=== PATIENT | female | born 1995 | race African-American/Black ===

== ENCOUNTER 2017-03-05 03:01 | Inpatient (IN) | payer OTHER, SELFPAY ==
[2017-03-05] MEDS ORDERED: Ketorolac Tromethamine 30 MG/ML VIAL ONE (03:35)
[2017-03-05 04:25] LABS: Band 10 % (5-11); Hematocrit 33.2 % (36.0-47.0); Mean Platelet Volume 9.7 fL (7.4-10.4); Neutrophil 81 % (42-75); Red Blood Cell (RBC) Count 3.93 mill/uL (4.20-5.40)
[2017-03-05 04:35] LABS: Anion Gap 10 mmol/L (10-20); BUN (Urea Nitrogen) 19 mg/dL (7.0-18.7); Calc. Creatinine Clearance 0 mL/min (70-130); Carbon Dioxide 25 mmol/L (22-29); Chloride 100 mmol/L (98-107); Estimated GFR-MDRD 45
[2017-03-05] MEDS ORDERED: Dexamethasone 10 MG/ML VIAL ONE ×2 (05:41→11:31)
[2017-03-05 07:20] LABS: Lactic Acid - Sepsis 1.7 mmol/L (0.5-2.2)
[2017-03-05 07:48] LABS: Bilirubin Negative (Negative); Blood, Urine Negative (Negative); Glucose, Urine (Dipstick) Negative (Negative); Ketone, Urine Negative (Negative); Nitrite Negative (Negative); Protein, Urine (Dipstick) Negative (Neg-Trace)
[2017-03-05 08:00] LABS: Bacteria/HPF 2+ HPF (None Seen); Hyaline Casts/LPF 0-3 HYALINE CAST LPF (0-3 Hyaline); RBC/HPF 0-3 HPF (0-3); Renal Epithelial 0-3 HPF (0-3); Transitional Epithelial 0-3 HPF (0-3)
--- NOTE | 2017-03-05 08:04 | RAD ---
PORTABLE CHEST ONE VIEW: 03/05/2017 4:05 a.m. HISTORY: Cough. COMPARISON: 04/27/2009 FINDINGS: The heart size is normal. No focal areas of consolidation, pneumothorax, or pleural effusions are s een. IMPRESSION: No acute process. POS: [facility]
--- NOTE | 2017-03-05 10:18 | CT ---
POSTCONTRAST SOFT TISSUE NECK CT: Date: 03/05/17 HISTORY: Fever. Neck mass. Body aches. Lymph node swelling. Patient is on antibiotics. COMPARISON: None. TECHNIQUE: Postcontrast soft tissue neck CT is performed in the axial plane. Reformatted images are submitted f or interpretation. FINDINGS: Visualized brain parenchyma is unremarkable. Mild mucosal thickening in the visualized paranasal sinuses. Adequate mastoid air cell aeration. Aerodigestive tract is patent. No mucosal abnormality. Limited evaluation of the oral cavity due to dental amalgam artifact. Midline fatty raphe of the tongue is preserved. Epiglottis has a normal jim iber. Pre-epiglottic fat is preserved. There is no prevertebral soft tissue swelling. There is symmetric attenuation of the parotid and submandibular glands. Symmetric attenuation of the sternocleidomastoid muscles. There are enlarged soft tissue neck lymph nodes. Enlarged left Level II lymph node measures 1.3 x 1. 1 cm. Enlarged posterior left neck lymph node at the C1 level measures 1.5 x 1.0 cm. There is a necr otic focus with peripheral enhancement in the posterior right neck at approximately the C3 level armani suring 1.5 x 1.7 cm. A small soft tissue abscess is favored. There is induration of the adjacent fat . Additional scattered enlarged and nonenlarged lymph nodes are noted. Grossly, the great vessels of the neck are patent. There is no significant stenosis of the central spinal canal or neural foramina. Vertebral body heig ht is maintained. No fracture. Upper mediastinum and lung apices are unremarkable. IMPRESSION: 1. Posterior right neck soft tissue abscess. 2. Soft tissue neck lymphadenopathy. 3. No obvious mass in the aerodigestive tract. POS: [facility]
[2017-03-05] MEDS ORDERED: Aztreonam 2 GM in Sodium Chloride 0.9% 100 ML IVPB SCH (12:15)
[2017-03-05] MEDS ORDERED: Acetaminophen 325 MG TAB PO PRN (12:51)
[2017-03-05 12:59] VITALS: BMI 32.8
[2017-03-05] MEDS ORDERED: Sodium Chloride 0.9% 1,000 ML IV SCH (13:00)
--- NOTE | 2017-03-05 14:17 | HP-2 ---
CODE STATUS: FULL. PRIMARY CARE PHYSICIAN: Claudia morfin. ATTENDING: Alanis Venegas M.D. RESIDENT: Kyaw Dhaliwal D.O. HISTORIAN: The patient. CHIEF COMPLAINT: Neck pain. HISTORY OF PRESENT ILLNESS: A 21-year-old female here with complaint of neck pain and a right poste rior neck mass. Apparently the mass has been present for approximately 1 week where it came up \\\\"o vernight\\\\" and although the mass has not been tender it has caused throbbing neck pain intermittent ly. The patient was seen approximately a week ago at [facility] for fever, chills, body joyce n. She was diagnosed with flu; however, there is apparently some concern of bacterial etiology as t he patient was put on Keflex at that time. Additionally, she was put on tramadol for the pain. As far as the fever is concerned they have been subjective only and has not had a documented fever. Th e patient did not take her temperature at home. Since discharge from the emergency room at [facility] ranjit Mix she has had intermittent pain with one presyncopal episode while in the shower. Around midn ight or 2 a.m. on the morning of 03/05/2017 she had a throbbing pain that was bad enough that she de cided to call EMS for evaluation in the ER. When at the ER the patient got a CT that showed a right posterior lymph node versus abscess and 2 left lymph nodes, the right measured approximately 2.5 cm and the left 1-1/2. In the ER, the patient was given Toradol 15 mg, aztreonam 2 grams, vancomycin 1 gram, Decadron 10 mg x2. At the time of my evaluation, the patient was not complaining of pain an d had no specific complaints. PAST MEDICAL HISTORY: None. PAST SURGICAL HISTORY: Tonsillectomy. ALLERGIES: PENICILLIN, anaphylactic in nature. MEDICATIONS: Keflex and tramadol. FAMILY HISTORY: Maternal fibroids. SOCIAL HISTORY: Tobacco none. ETOH none. Drugs: None. REVIEW OF SYSTEMS: GENERAL: The patient endorses fever, chills, and fatigue. Denies any night sweats, changes in appe tite, changes in weight. HEENT: Denies any vision changes or eye pain. ENT: No nasal congestion, rhinorrhea. RESPIRATORY: Denies any cough or congestion or shortness of breath. CARDIOVASCULAR: Denies any chest pain or palpitations. GI: Denies any nausea, vomiting. SKIN: Denies rashes or lesions. MUSCULOSKELETAL: Denies any pain, tenderness other than noted above. NEURO: Denies any weakness or numbness. Admits to 1 presyncopal episode. PSYCHIATRIC: Denies any anxiety or depression. PHYSICAL EXAMINATION: VITAL SIGNS: Blood pressure 120/70, pulse 97, respiratory rate 18, T-max 98.8, pulse ox 99% on room air, current weight is 81.6 kilograms. GENERAL: The patient is alert and oriented x3 in no apparent distress. HEENT: PERRLA, EOMI. Conjunctivae within normal limits. Nasal turbinates are edematous and red. Oropharynx is erythematous without exudate. NECK: Supple with a right posterior lymph node, nontender, mobile and regular, approximately 2.5 cm across. There are 2 left posterior lymph nodes approximately 0.5 cm across that are nontender, mob ile, rubbery in consistency and not irregular. CARDIOVASCULAR: Regular rate and rhythm. No murmur. RESPIRATORY: Normal effort. Clear to auscultation bilaterally without retractions. SKIN: Warm and dry. ABDOMEN: Soft, nontender. Bowel sounds are all 4 quadrants without mass or distention. EXTREMITIES: No clubbing, cyanosis or edema. MUSCULOSKELETAL: Structure within normal limits. Tone within normal limits. Muscle strength is 5/ 5. Full range of motion in all major joints. NEUROLOGICAL: No focal neurological deficits. Cranial nerves II-XII are grossly intact. PSYCHIATRIC: Appropriate. LABORATORY DATA: CBC: Hemoglobin 10.9, hematocrit 33.2, white count 20.0, platelets 127, MCV of 84 .4. 10% bands, 81% neutrophils. BMP; sodium 131, potassium 4.0, chloride 20, bicarbonate 25, BUN 19 , creatinine 1.73, glucose 117, calcium is 8.0. Rapid Strep test is negative. Flu A and B are nega tive. Piute POC test is negative. CK is 70. UA; specific gravity 1.012, protein negative blood, ne gative, leukocyte esterase small, nitrites negative, ketones negative, glucose negative, RBC 0-3, WB Cs 4-6, bacteria 2+, squamous cells 11-20. Chest x-ray is within normal limits. IMAGING: Neck CT; right neck posterior soft tissue abscess versus lymphadenopathy and left posterio r lymphadenopathy. ASSESSMENT AND PLAN: This is a 21-year-old female with posterior lymphadenopathy reactive versus ma lignant in nature. 1. Lymphadenopathy bilateral on CT imaging, may be an abscess on the right. ENT has been consulted , an infectious etiology has been ruled out via POC testing. Consider repeating mono or blood draw for an IgM, consider EBV, CMV, possibly Bartonella if there has been exposure pending ENT recommenda tions. 2. Neutrophilia. Increased neutrophils and bands suggest infectious possible bacterial etiology. We will continue the antibiotics. Culture have been drawn. Infectious workup as above. We will di scontinue the antibiotics once bacterial etiology has been ruled out. 3. Anemia. The patient is not symptomatic. Concerning the mild thrombocytopenia and neutrophilia, leukemia is in the differential. Follow ENT recommendations as far as possible biopsy of that lymp h node. 4. Thrombocytopenia as above. We will follow CBC in the morning. 5. Acute kidney injury. The patient is possibly volume down. We will continue the IVF and monitor the BMP in the morning. 6. Hyponatremia. We will get a urine osmolality and will follow BMP. We will work up further if t his does not resolve with intravenous fluid resuscitation.
[2017-03-05 14:51] LABS: Lactic Acid - Sepsis 1.5 mmol/L (0.5-2.2)
[2017-03-05] MEDS: Sodium Chloride 0.9% 1,000 ML IV SCH ×2 (14:52→23:11)
[2017-03-05 19:49] LABS: Osmolality, Urine 170 mOsm/kg (300-900)
[2017-03-05 19:58] LABS: Sodium, Urine Less than 20 mmol/L (Not Available)
[2017-03-06] MEDS: Sodium Chloride 0.9% 1,000 ML IV SCH ×2 (06:38→14:37)
--- NOTE | 2017-03-06 06:50 | PDOC.FM ---
- Subjective Subjective: Pt states that she has no complaints this morning and is generally feeling well. She says that her neck did hurt some last night, however this has resolved. She denies sore throat, difficulty swallowing, cough, peripheral numbness/weakness, easy bruising and all other symptoms in ROS not previously noted - Objective Vital Signs & Weight: Vital Signs (12 hours) Temp Pulse Resp BP BP Pulse Ox 03/06/17 05:28 97.6 F 74 16 90/60 100 03/06/17 00:07 97.5 F L 80 14 98/64 98 03/05/17 20:00 98.4 F 71 16 121/76 99 03/05/17 19:59 98.4 F 71 18 121/76 99 Weight Weight 83.915 kg Result Diagrams: 03/05/17 03:54 03/05/17 03:54 <Kyaw Dhaliwal - Last Filed: 03/06/17 08:40> - Objective Vital Signs & Weight: Vital Signs (12 hours) Temp Pulse Resp BP Pulse Ox 03/06/17 11:31 98.8 F 66 16 106/74 100 03/06/17 08:00 97.7 F 63 16 97 03/06/17 07:07 97.7 F 63 16 101/71 97 03/06/17 05:28 97.6 F 74 16 90/60 100 Weight Weight 83.915 kg Result Diagrams: 03/06/17 08:25 03/06/17 08:25 <Charlette Bal - Last Filed: 03/06/17 15:54> Phys Exam - Physical Examination Constitutional: NAD HEENT: PERRLA, moist MMs non exudative erythromatous pharynx Neck: full ROM large 2.5 cm lymph node on posterior R. 2 0.5cm lymp nodes posterior L. Non tender, unchanged. Respiratory: clear to auscultation bilateral Cardiovascular: RRR, no significant murmur Gastrointestinal: soft Slight edema in right arm. No palpable lymph nodes Neurological: non-focal As noted above. No other nodes noted to include axilla and supraclavicular Psychiatric: normal affect, A&O x 3 Skin: no rash, normal turgor <Kyaw Dhaliwal - Last Filed: 03/06/17 08:40> Dx/Plan (1) Posterior cervical lymphadenopathy Code(s): R59.0 - LOCALIZED ENLARGED LYMPH NODES Status: Acute (2) Anemia Code(s): D64.9 - ANEMIA, UNSPECIFIED Status: Acute Qualifiers: Anemia type: unspecified type Qualified Code(s): D64.9 - Anemia, unspecified (3) Neutrophilia Code(s): D72.9 - DISORDER OF WHITE BLOOD CELLS, UNSPECIFIED Status: Acute (4) Thrombocytopenia Code(s): D69.6 - THROMBOCYTOPENIA, UNSPECIFIED Status: Acute (5) MAGNO (acute kidney injury) Code(s): N17.9 - ACUTE KIDNEY FAILURE, UNSPECIFIED Status: Resolved (6) Hyponatremia Code(s): E87.1 - HYPO-OSMOLALITY AND HYPONATREMIA Status: Resolved - Plan Plan: 1. Posterior Lymphadenopathy -EBV positive. -ENT consult pending. 2. Anemia -possible incidental finding, however in the presence of elevated white count and throbocytopenia with the large lymphnodes, malignancy cannot be ruled out -iron studies and peripheral smear 3. thrombocytopenia -see anemia 4. MAGNO -resolved w/IVF -encourage PO fluids 5. Hyponatremia -resolved w/IVF <Kyaw Dhaliwal - Last Filed: 03/06/17 08:40> Attending Addendum - Attending Addendum I personally evaluated the patient and discussed the management with Dr. Dhaliwal. I agree with the History, Examination, Assessment and Plan documented above with any addition or exceptions noted below. The patient will be seen by ENT for possible biopsy. EBV results indicate prior infection. Will await ENT input. Stop IV fluids. <Charlette Bal - Last Filed: 03/06/17 15:54>
[2017-03-06 08:19] LABS: EBV Early Antigen (EA) IgG AB <9.0 U/mL (0.0-8.9); EBV VCA IgG >600.0 U/mL (0.0-17.9)
[2017-03-06 09:05] LABS: Anion Gap 11 mmol/L (10-20); BUN (Urea Nitrogen) 17 mg/dL (7.0-18.7); Calc. Creatinine Clearance 124 mL/min (70-130); Calcium 8.5 mg/dL (7.8-10.44); Carbon Dioxide 21 mmol/L (22-29); Chloride 111 mmol/L (98-107); Estimated GFR-MDRD 90
[2017-03-06 09:07] LABS: Iron 58 ug/dL (50-170)
[2017-03-06 09:35] LABS: Band 35 % (5-11); Burr Cells SLIGHT = 2-5 cells (100X) (0-1/hpf); Hematocrit 30.7 % (36.0-47.0); Mean Platelet Volume 10.4 fL (7.4-10.4); Neutrophil 53 % (42-75); Polychromasia SLIGHT = 2-3 cells (100X) (0-2/hpf); White Blood Cell (WBC) Count 20.2 thou/uL (4.8-10.8)
--- NOTE | 2017-03-06 10:04 | ULT ---
ULTRASOUND SPLEEN: History: Infectious mononucleosis. FINDINGS: The spleen measures 12.1 x 4.3 x 3.7 cm. No focal mass is seen. IMPRESSION: Unremarkable exam. POS: [facility]
--- NOTE | 2017-03-06 16:13 | ULT ---
ULTRASOUND GUIDED FINE NEEDLE ASPIRATION OF RIGHT NECK LYMPHADENOPATHY: 03/06/17 HISTORY: Lymphadenopathy noted on prior CT exam. Fine needle aspiration and core biopsy requested for further assessment. Differential diagnosis includes infectious/inflammatory processes, including atypical i nfection such as tuberculosis and fungal organisms, lymphoma, metastatic disease is a possibility as well. FINDINGS: Preprocedural imaging demonstrates posterior neck lymphadenopathy bilaterally. In the area of palpable concern, in the area of most prominent lymphadenopathy within the posterior aspect of the right neck superiorly, preprocedural imaging demonstrates a enlarged irregular node me asuring at least 2.0 x 1.0 cm. Informed consent for fine needle aspiration and core biopsy obtained prior to the procedure. The skin overlying this lesion was prepped and draped in a normal sterile fashion and anesthetized w ith 1% buffered lidocaine. Initially, two 25 gauge fine needle aspirations were obtained. This material was given to the pathol ogist at the bedside. Then, attempts were made obtain small core biopsies using a 20 gauge Temno nee dle. However, the patient was unable to tolerate attempts at core biopsy secondary to pain and anxie ty. Postprocedural imaging demonstrates no evidence for post biopsy hemorrhage. IMPRESSION: Successful fine needle aspiration of lymphadenopathy within the neck posteriorly on the right. Pathology is pending. If further tissue samples are required for definitive diagnosis, attempts coul d be made at core biopsy, which would require sedation. Excisional biopsy of lymphadenopathy may be required for definitive diagnosis however. POS: [facility]
[2017-03-06] MEDS: Acetaminophen 325 MG TAB PO PRN ×2 (16:37→20:44)
[2017-03-06] MEDS: Vancomycin HCl 1.25 GM in Sodium Chloride 0.9% 250 ML 250 ML IVPB SCH (22:05)
[2017-03-07] MEDS: Acetaminophen 325 MG TAB PO PRN ×4 (00:40→20:48)
[2017-03-07 06:16] LABS: CMV IgM AB Less than 30.0 AU/mL (0.0-29.9)
[2017-03-07 08:07] LABS: Hematocrit 29.6 % (36.0-47.0); Mean Platelet Volume 9.5 fL (7.4-10.4); Red Blood Cell (RBC) Count 3.49 mill/uL (4.20-5.40); White Blood Cell (WBC) Count 16.3 thou/uL (4.8-10.8)
--- NOTE | 2017-03-07 08:14 | PDOC.FM ---
- Subjective Subjective: Pt states that she feels tired today and that this has been the same since she was admitted. Her neck hurts from the biopsy yesterday. Mother was unclear as to why we needed blood draws every morning, this was discussed to her satisfaction. There were no acute events over night. - Objective MAR Reviewed: Yes Vital Signs & Weight: Vital Signs (12 hours) Temp Pulse Resp BP Pulse Ox 03/07/17 04:41 99 F 107 H 20 100/67 98 03/07/17 00:00 98.7 F 94 18 102/67 99 Weight Weight 83.915 kg I&O: 03/06/17 03/07/17 03/08/17 06:59 06:59 06:59 Intake Total 2150 Balance 2150 Result Diagrams: 03/07/17 07:34 03/06/17 08:25 <Kyaw Dhaliwal - Last Filed: 03/07/17 08:09> - Objective Vital Signs & Weight: Vital Signs (12 hours) Temp Pulse Resp BP Pulse Ox 03/07/17 08:00 99 F 107 H 20 99 03/07/17 04:41 99 F 107 H 20 100/67 98 03/07/17 00:00 98.7 F 94 18 102/67 99 Weight Weight 83.915 kg I&O: 03/06/17 03/07/17 03/08/17 06:59 06:59 06:59 Intake Total 2150 Balance 2150 Result Diagrams: 03/07/17 07:34 03/07/17 07:34 <Charlette Bal - Last Filed: 03/07/17 10:52> Phys Exam - Physical Examination Constitutional: NAD HEENT: moist MMs Neck: full ROM Nodes unchanged Respiratory: clear to auscultation bilateral Cardiovascular: RRR Gastrointestinal: soft, non-tender, no distention Musculoskeletal: no edema Neurological: non-focal, normal sensation, moves all 4 limbs Psychiatric: normal affect, A&O x 3 Skin: no rash <Kyaw Dhaliwal - Last Filed: 03/07/17 08:09> Dx/Plan (1) Posterior cervical lymphadenopathy Code(s): R59.0 - LOCALIZED ENLARGED LYMPH NODES Status: Acute (2) Anemia Code(s): D64.9 - ANEMIA, UNSPECIFIED Status: Acute Qualifiers: Anemia type: unspecified type Qualified Code(s): D64.9 - Anemia, unspecified (3) Neutrophilia Code(s): D72.9 - DISORDER OF WHITE BLOOD CELLS, UNSPECIFIED Status: Acute (4) Thrombocytopenia Code(s): D69.6 - THROMBOCYTOPENIA, UNSPECIFIED Status: Acute (5) MAGNO (acute kidney injury) Code(s): N17.9 - ACUTE KIDNEY FAILURE, UNSPECIFIED Status: Resolved (6) Hyponatremia Code(s): E87.1 - HYPO-OSMOLALITY AND HYPONATREMIA Status: Resolved - Plan Plan: 1. Posterior Lymphadenopathy -EBV positive for prior infection, does not appear to be acute. -CMV negative -Biopsy yesterday. Path pending. IR was unable to complete the biopsy dt pt not tolerating the procedure, if needed core samples will need to be repeated. -Consider ID consult if path is negative 2. Anemia -possible incidental finding, however in the presence of elevated white count and throbocytopenia with the large lymphnodes, malignancy cannot be ruled out -iron studies are largely normal with the exception of a decreased TIBC. Pt does have a FHx of sickle cell anemia. 3. thrombocytopenia -see anemia -has improved today 4. MAGNO -resolved w/IVF -encourage PO fluids 5. Hyponatremia -resolved w/IVF <Kyaw Dhaliwal - Last Filed: 03/07/17 08:09> Attending Addendum - Attending Addendum I personally evaluated the patient and discussed the management with Dr. Dhaliwal. I agree with the History, Examination, Assessment and Plan documented above with any addition or exceptions noted below. The patient's white count is improved. FNA results are pending. Will continue antibiotics until FNA results return as either infection or possible malignancy. <Charlette Bal - Last Filed: 03/07/17 10:52>
[2017-03-07 08:16] LABS: ALT (SGPT) 63 U/L (8-55); AST (SGOT) 43 U/L (5-34); Alkaline Phosphatase 94 U/L (40-150); Anion Gap 11 mmol/L (10-20); BUN (Urea Nitrogen) 13 mg/dL (7.0-18.7); Bilirubin, Total 0.5 mg/dL (0.2-1.2); Calc. Creatinine Clearance 124 mL/min (70-130); Calcium 8.5 mg/dL (7.8-10.44); Carbon Dioxide 21 mmol/L (22-29); Chloride 110 mmol/L (98-107); Estimated GFR-MDRD 90; Globulin 3.2 g/dL (2.4-3.5)
[2017-03-07 08:23] LABS: Band 25 % (5-11); Metamyelocyte 1 % (0-0); Neutrophil 55 % (42-75); Reactive Lymphocytes 2 % (0-10)
[2017-03-07] MEDS: Vancomycin HCl 1.25 GM in Sodium Chloride 0.9% 250 ML 250 ML IVPB SCH ×2 (09:20→20:20)
[2017-03-08] MEDS: Acetaminophen 325 MG TAB PO PRN ×2 (02:20→12:30)
[2017-03-08 06:33] LABS: ALT (SGPT) 44 U/L (8-55); AST (SGOT) 24 U/L (5-34); Alkaline Phosphatase 100 U/L (40-150); Anion Gap 14 mmol/L (10-20); BUN (Urea Nitrogen) 7 mg/dL (7.0-18.7); Bilirubin, Total 0.6 mg/dL (0.2-1.2); Calc. Creatinine Clearance 131 mL/min (70-130); Calcium 8.5 mg/dL (7.8-10.44); Carbon Dioxide 21 mmol/L (22-29); Chloride 110 mmol/L (98-107); Estimated GFR-MDRD Greater than 90; Globulin 3.3 g/dL (2.4-3.5); Hematocrit 30.9 % (36.0-47.0); Red Blood Cell (RBC) Count 3.68 mill/uL (4.20-5.40)
[2017-03-08 07:34] LABS: Band 12 % (5-11); Metamyelocyte 1 % (0-0); Neutrophil 70 % (42-75); Polychromasia SLIGHT = 2-3 cells (100X) (0-2/hpf); Reactive Lymphocytes 3 % (0-10)
--- NOTE | 2017-03-08 08:00 | PDOC.FM ---
- Subjective Subjective: Pt complains of continued throbbing type neck pain that does not radiate. This has been unchanged since admission. She denies all other symptoms in ROS. There were no acute events over night. - Objective MAR Reviewed: Yes Vital Signs & Weight: Vital Signs (12 hours) Temp Pulse Resp BP Pulse Ox 03/08/17 07:37 99.8 F H 92 20 116/80 94 L 03/08/17 04:00 99.3 F 92 16 116/77 96 03/08/17 00:00 99.0 F 96 16 105/69 97 03/07/17 20:00 99.2 F 102 H 16 108/73 95 Weight Weight 83.915 kg I&O: 03/07/17 03/08/17 03/09/17 06:59 06:59 06:59 Intake Total 2150 2860 Balance 2150 2860 Result Diagrams: 03/08/17 04:51 03/08/17 04:51 <Kyaw Dhaliwal - Last Filed: 03/08/17 07:58> - Objective Vital Signs & Weight: Vital Signs (12 hours) Temp Pulse Resp BP Pulse Ox 03/08/17 07:37 99.8 F H 92 20 116/80 94 L 03/08/17 04:00 99.3 F 92 16 116/77 96 03/08/17 00:00 99.0 F 96 16 105/69 97 Weight Weight 83.915 kg I&O: 03/07/17 03/08/17 03/09/17 06:59 06:59 06:59 Intake Total 2150 2860 Balance 2150 2860 Result Diagrams: 03/08/17 04:51 03/08/17 04:51 <Charlette Bal - Last Filed: 03/08/17 09:43> Phys Exam - Physical Examination Constitutional: NAD HEENT: moist MMs Neck: full ROM Posterior lymph nodes unchanged. Respiratory: clear to auscultation bilateral Cardiovascular: RRR, no significant murmur Gastrointestinal: soft, non-tender, positive bowel sounds Musculoskeletal: no edema Neurological: non-focal, normal sensation, moves all 4 limbs No nodes other than previously noted Psychiatric: normal affect, A&O x 3 Skin: no rash <Kyaw Dhaliwal - Last Filed: 03/08/17 07:58> Dx/Plan (1) Posterior cervical lymphadenopathy Code(s): R59.0 - LOCALIZED ENLARGED LYMPH NODES Status: Acute (2) Anemia Code(s): D64.9 - ANEMIA, UNSPECIFIED Status: Acute Qualifiers: Anemia type: unspecified type Qualified Code(s): D64.9 - Anemia, unspecified (3) Neutrophilia Code(s): D72.9 - DISORDER OF WHITE BLOOD CELLS, UNSPECIFIED Status: Acute (4) Thrombocytopenia Code(s): D69.6 - THROMBOCYTOPENIA, UNSPECIFIED Status: Acute (5) MAGNO (acute kidney injury) Code(s): N17.9 - ACUTE KIDNEY FAILURE, UNSPECIFIED Status: Resolved (6) Hyponatremia Code(s): E87.1 - HYPO-OSMOLALITY AND HYPONATREMIA Status: Resolved - Plan Plan: 1. Posterior Lymphadenopathy -EBV positive for prior infection, does not appear to be acute. -CMV negative -bartonella negative -flu negative -strep negative -FNA sample was not adequate due to pt being unable to tolerate. Results could not rule out Hodgkin's. Will order a sedated biopsy today. -Consider ID consult if path is negative -CBC has consistent elevated WBC count with elevated neuts/bands -Continue abx until infection can be ruled out. 2. Anemia -possible incidental finding, however in the presence of elevated white count and throbocytopenia with the large lymphnodes, malignancy cannot be ruled out -iron studies are largely normal with the exception of a decreased TIBC. Pt does have a FHx of sickle cell anemia. 3. thrombocytopenia -see anemia -has improved today 4. MAGNO -resolved w/IVF -encourage PO fluids 5. Hyponatremia -resolved w/IVF <Kyaw Dhaliwal - Last Filed: 03/08/17 07:58> Attending Addendum - Attending Addendum I personally evaluated the patient and discussed the management with Dr. Dhaliwal. I agree with the History, Examination, Assessment and Plan documented above with any addition or exceptions noted below. The patient complains of neck pain and is tearful this morning with her blood draws. She will go for repeat biopsy today as the fna didn't have sufficient tissue to make a diagnosis. WBC count still elevated. Cultures negative to date. <Charlette Bal - Last Filed: 03/08/17 09:43>
[2017-03-08 09:00] LABS: Vancomycin, Trough 10.4 ug/mL
[2017-03-08] MEDS ORDERED: Midazolam HCl 2 mg/2 ml Vial ONE (09:52)
[2017-03-08] MEDS ORDERED: Fentanyl 100 MCG/2 ML VIAL ONE (09:52)
[2017-03-08] MEDS ORDERED: Sodium Chloride 0.9% 40 ML ONE (09:53)
[2017-03-08] MEDS: Vancomycin HCl 1.25 GM in Sodium Chloride 0.9% 250 ML 250 ML IVPB SCH (10:00)
[2017-03-08] MEDS ORDERED: VANCOMYCIN HCL IVPB SCH ×2 (10:19→10:45)
[2017-03-08] MEDS ORDERED: SODIUM CHLORIDE 0.9% IVPB SCH (10:19)
[2017-03-08] MEDS ORDERED: ADMIXTURE FEE IVPB SCH (10:45)
[2017-03-08] MEDS ORDERED: SODIUM CHLORIDE IVPB SCH (10:45)
[2017-03-08] MEDS ORDERED: Vancomycin HCl 1.75 GM, Admixture Fee 1 EACH in Sodium Chloride 0.9% 500 ML IVPB SCH (11:00)
[2017-03-08] MEDS ORDERED: Ibuprofen 800 MG TAB PO SCH (14:00)
[2017-03-08] MEDS: Vancomycin HCl 1.75 GM, Admixture Fee 1 EACH in Sodium Chloride 0.9% 500 ML IVPB SCH (21:21)
[2017-03-08] MEDS: Ibuprofen 800 MG TAB PO PRN (21:22)
[2017-03-09 06:30] LABS: Anion Gap 12 mmol/L (10-20); BUN (Urea Nitrogen) 6 mg/dL (7.0-18.7); Calc. Creatinine Clearance 147 mL/min (70-130); Calcium 8.3 mg/dL (7.8-10.44); Carbon Dioxide 21 mmol/L (22-29); Chloride 109 mmol/L (98-107); Estimated GFR-MDRD Greater than 90
[2017-03-09 06:33] LABS: Hematocrit 33.2 % (36.0-47.0); Mean Platelet Volume 9.3 fL (7.4-10.4); Red Blood Cell (RBC) Count 4.06 mill/uL (4.20-5.40); White Blood Cell (WBC) Count 13.8 thou/uL (4.8-10.8)
[2017-03-09 06:34] LABS: Band 8 % (5-11); Neutrophil 69 % (42-75)
--- NOTE | 2017-03-09 07:13 | ULT ---
ULTRASOUND GUIDED CORE BIOPSY MASS RIGHT NECK: Indications: Neck CT reveals right neck mass presumed to represent adenopathy. Previous attempt at u ltrasound guided biopsy on 03-06-17 was unsuccessful. Patient would not tolerate core biopsy. An FNA was obtained at that time which is nondiagnostic. Patient returns today for repeat attempt at core biopsy with conscious sedation. Conscious sedation: Patient was given 75 micrograms of Fentanyl IV and 1 milligram Versed IV prior t o procedure. A procedure consent form was signed prior to conscious sedation. FINDINGS: Three 18 gauge core biopsy specimens were obtained under ultrasound guidance. Images for each biopsy were obtained and confirmed biopsy through the mid portion of the mass. Pathology was present at bedside and confirmed adequacy of tissue and the procedure was halted after three core biopsy specimens. PROCEDURE NOTE: Right neck was prepped and draped in a sterile manner. Ultrasound again reveals an irregularly shape d mass in the right neck which is consistent with adenopathy. After conscious sedation was administe red, local anesthesia was given under ultrasound guidance with Lidocaine. Tiny skin incision was mad e with a scalpel. An 18 gauge biopsy instrument was introduced under ultrasound guidance. The biopsy needle was advanced to the leading edge of the mass where pre biopsy image was obtained. Post biops y image was then obtained confirming biopsy through the mid portion of the mass. This was repeated x 3. There were no problems or complications. POS: [facility]
--- NOTE | 2017-03-09 08:18 | PDOC.FM ---
- Subjective Subjective: Pt with complaint of neck pain. No new symptoms over night. Pt generally feels well. Denies all other symptoms in ROS - Objective MAR Reviewed: Yes Vital Signs & Weight: Weight Weight 83.915 kg I&O: 03/08/17 03/09/17 03/10/17 06:59 06:59 06:59 Intake Total 2860 1050 Balance 2860 1050 Result Diagrams: 03/09/17 06:06 03/09/17 06:06 <Kyaw Dhaliwal - Last Filed: 03/09/17 08:16> - Objective Vital Signs & Weight: Vital Signs (12 hours) Temp Pulse Resp BP Pulse Ox 03/09/17 08:00 98.3 F 95 16 93 L 03/09/17 07:25 98.3 F 95 16 124/79 93 L Weight Weight 83.915 kg I&O: 03/08/17 03/09/17 03/10/17 06:59 06:59 06:59 Intake Total 2860 1050 Balance 2860 1050 Result Diagrams: 03/09/17 06:06 03/09/17 06:06 <Charlette Bal - Last Filed: 03/09/17 12:54> Phys Exam - Physical Examination Constitutional: NAD HEENT: moist MMs, oral pharynx no lesions Neck: full ROM No change in nodes Respiratory: clear to auscultation bilateral Cardiovascular: RRR, no significant murmur Gastrointestinal: soft, non-tender, no distention Musculoskeletal: no edema Neurological: non-focal Psychiatric: normal affect, A&O x 3 Skin: no rash <Kyaw Dhaliwal - Last Filed: 03/09/17 08:16> Dx/Plan (1) Posterior cervical lymphadenopathy Code(s): R59.0 - LOCALIZED ENLARGED LYMPH NODES Status: Acute (2) Anemia Code(s): D64.9 - ANEMIA, UNSPECIFIED Status: Acute Qualifiers: Anemia type: unspecified type Qualified Code(s): D64.9 - Anemia, unspecified (3) Neutrophilia Code(s): D72.9 - DISORDER OF WHITE BLOOD CELLS, UNSPECIFIED Status: Acute (4) Thrombocytopenia Code(s): D69.6 - THROMBOCYTOPENIA, UNSPECIFIED Status: Acute (5) MAGNO (acute kidney injury) Code(s): N17.9 - ACUTE KIDNEY FAILURE, UNSPECIFIED Status: Resolved (6) Hyponatremia Code(s): E87.1 - HYPO-OSMOLALITY AND HYPONATREMIA Status: Resolved (7) Hypokalemia Code(s): E87.6 - HYPOKALEMIA Status: Acute - Plan Plan: 1. Posterior Lymphadenopathy -EBV positive for prior infection, does not appear to be acute. -CMV negative -bartonella negative -flu negative -strep negative -Biopsy pending -Consider ID consult if path is negative -CBC has consistent elevated WBC count with elevated neuts/bands, however WBC has improved today though still elevateed -Continue abx until infection can be ruled out. 2. Anemia -possible incidental finding, however in the presence of elevated white count and throbocytopenia with the large lymphnodes, malignancy cannot be ruled out -iron studies are largely normal with the exception of a decreased TIBC. Pt does have a FHx of sickle cell anemia. 3. thrombocytopenia -resolved -see anemia 4. MAGNO -resolved w/IVF -encourage PO fluids 5. Hyponatremia -resolved w/IVF 6. Hypokalemia -new today. Mildly low -replace PO <Kyaw Dhaliwal - Last Filed: 03/09/17 08:16> Attending Addendum - Attending Addendum I personally evaluated the patient and discussed the management with Dr. Dhaliwal. I agree with the History, Examination, Assessment and Plan documented above with any addition or exceptions noted below. Patient with continued neck pain at the site of enlarged lymph node. Also complaining of constipation. Will adjust bowel regimen. Waiting on pathology results from biopsy. <Charlette Bal - Last Filed: 03/09/17 12:54>
[2017-03-09] MEDS ORDERED: Potassium Chloride 20 MEQ TAB PO ONE (08:30)
[2017-03-09] MEDS: Vancomycin HCl 1.75 GM, Admixture Fee 1 EACH in Sodium Chloride 0.9% 500 ML IVPB SCH ×2 (09:05→21:41)
[2017-03-09] MEDS ORDERED: Polyethylene Glycol 3350 17 GM Packet PO PRN (10:12)
[2017-03-09] MEDS ORDERED: Docusate 100 MG CAP PO PRN (10:12)
[2017-03-09] MEDS: Acetaminophen 325 MG TAB PO PRN (14:29)
[2017-03-09] MEDS: Ibuprofen 800 MG TAB PO PRN (21:47)
[2017-03-10 05:40] LABS: Anion Gap 12 mmol/L (10-20); BUN (Urea Nitrogen) 5 mg/dL (7.0-18.7); Calc. Creatinine Clearance 149 mL/min (70-130); Calcium 8.4 mg/dL (7.8-10.44); Carbon Dioxide 22 mmol/L (22-29); Chloride 109 mmol/L (98-107); Estimated GFR-MDRD Greater than 90
[2017-03-10 05:52] LABS: Band 2 % (5-11); Hematocrit 31.6 % (36.0-47.0); Mean Platelet Volume 8.4 fL (7.4-10.4); Metamyelocyte 2 % (0-0); Neutrophil 82 % (42-75); Red Blood Cell (RBC) Count 3.79 mill/uL (4.20-5.40); White Blood Cell (WBC) Count 10.2 thou/uL (4.8-10.8)
--- NOTE | 2017-03-10 06:23 | PDOC.FM ---
- Subjective Subjective: Patient had a good night. She states neck pain is improved and had some good sleep. She had no new complaints overnight. - Objective Vital Signs & Weight: Vital Signs (12 hours) Temp Pulse Resp BP Pulse Ox 03/10/17 04:59 98.4 F 03/10/17 00:11 98.9 F 03/09/17 20:00 99.8 F H 91 20 115/76 97 Weight Weight 83.915 kg I&O: 03/08/17 03/09/17 03/10/17 06:59 06:59 06:59 Intake Total 2860 1050 2850 Balance 2860 1050 2850 Result Diagrams: 03/10/17 04:45 03/10/17 04:45 <Sulaiman Danielle - Last Filed: 03/10/17 07:19> - Objective Vital Signs & Weight: Vital Signs (12 hours) Temp 03/10/17 04:59 98.4 F 03/10/17 00:11 98.9 F Weight Weight 83.915 kg I&O: 03/09/17 03/10/17 03/11/17 06:59 06:59 06:59 Intake Total 1050 2850 Balance 1050 2850 Result Diagrams: 03/10/17 04:45 03/10/17 04:45 <Charlette Bal - Last Filed: 03/10/17 09:46> Phys Exam - Physical Examination HEENT: PERRLA, moist MMs Right sided neck swelling present. Respiratory: no wheezing, clear to auscultation bilateral Cardiovascular: RRR, no significant murmur Gastrointestinal: soft, non-tender, no distention, positive bowel sounds Musculoskeletal: no edema, pulses present Neurological: non-focal, normal sensation, moves all 4 limbs Lymphatic: no nodes Psychiatric: normal affect, A&O x 3 Skin: no rash <Sulaiman Danielle - Last Filed: 03/10/17 07:19> Dx/Plan (1) Posterior cervical lymphadenopathy Code(s): R59.0 - LOCALIZED ENLARGED LYMPH NODES Status: Acute Plan: -EBV positive for prior infection, does not appear to be acute. -CMV negative -bartonella negative -flu negative -strep negative -Biopsy pending -Consider ID consult if path is negative -Leukocytosis resolved today. Will monitor. -Continue abx until infection can be ruled out. (2) Anemia Code(s): D64.9 - ANEMIA, UNSPECIFIED Status: Acute Qualifiers: Anemia type: unspecified type Qualified Code(s): D64.9 - Anemia, unspecified Plan: -possible incidental finding, however in the presence of elevated white count and throbocytopenia with the large lymphnodes, malignancy cannot be ruled out -iron studies are largely normal with the exception of a decreased TIBC. Pt does have a FHx of sickle cell anemia. -Will monitor (3) Neutrophilia Code(s): D72.9 - DISORDER OF WHITE BLOOD CELLS, UNSPECIFIED Status: Acute Plan: -Still present with improved overall leukocytosis and thrombocytopenia -Will continue antibiotics until infection ruled out. (4) Thrombocytopenia Code(s): D69.6 - THROMBOCYTOPENIA, UNSPECIFIED Status: Acute Plan: -resolved -see anemia (5) MAGNO (acute kidney injury) Code(s): N17.9 - ACUTE KIDNEY FAILURE, UNSPECIFIED Status: Resolved Plan: -resolved w/IVF -encourage PO fluids -Monitor fluid status (6) Hyponatremia Code(s): E87.1 - HYPO-OSMOLALITY AND HYPONATREMIA Status: Resolved Plan: -resolved w/IVF (7) Hypokalemia Code(s): E87.6 - HYPOKALEMIA Status: Acute Plan: -resolved -replace PO -Will monitor going forward. - Plan Plan: Await results of biopsy and then will make further treatment plans from there. <Sulaiman Danielle - Last Filed: 03/10/17 07:19> Attending Addendum - Attending Addendum I personally evaluated the patient and discussed the management with Dr. Danielle. I agree with the History, Examination, Assessment and Plan documented above with any addition or exceptions noted below. The patient states she is feeling better. Still waiting on path results. Leukocytosis is improving. <Charlette Bal - Last Filed: 03/10/17 09:46>
[2017-03-10] MEDS: Vancomycin HCl 1.75 GM, Admixture Fee 1 EACH in Sodium Chloride 0.9% 500 ML IVPB SCH ×2 (08:32→21:33)
[2017-03-10] MEDS: Ibuprofen 800 MG TAB PO PRN ×2 (13:26→21:33)
[2017-03-11 04:38] LABS: #Eosinphils 0.9 thou/uL (0.0-0.7); #Lymphocytes 1.2 thou/uL (1.20-3.40); #Monocytes 0.5 thou/uL (0.11-0.59); #Neutrophils 6.7 thou/uL (1.40-6.50); %Basophils 0.4 % (0.0-1.0); %Eosinophils 9.9 % (0.0-10.0); %Lymphocytes 13.1 % (21.0-51.0); %Monocytes 4.9 % (0.0-10.0); Mean Platelet Volume 7.6 fL (7.4-10.4); Red Blood Cell (RBC) Count 3.61 mill/uL (4.20-5.40); White Blood Cell (WBC) Count 9.3 thou/uL (4.8-10.8)
[2017-03-11 04:51] LABS: Anion Gap 12 mmol/L (10-20); BUN (Urea Nitrogen) 7 mg/dL (7.0-18.7); Calc. Creatinine Clearance 153 mL/min (70-130); Calcium 8.6 mg/dL (7.8-10.44); Carbon Dioxide 22 mmol/L (22-29); Chloride 108 mmol/L (98-107); Estimated GFR-MDRD Greater than 90
--- NOTE | 2017-03-11 06:29 | PDOC.FM ---
- Subjective Subjective: Patient is overall improved. She started her menstrual cycle overnight and had some cramps from that. She is otherwise doing fine and just waiting for the biopsy results. - Objective Vital Signs & Weight: Vital Signs (12 hours) Temp Pulse Resp BP Pulse Ox 03/10/17 19:34 98.7 F 71 16 100 03/10/17 19:33 98.7 F 71 16 122/82 100 Weight Weight 83.915 kg I&O: 03/09/17 03/10/17 03/11/17 06:59 06:59 06:59 Intake Total 1050 2850 980 Balance 1050 2850 980 Result Diagrams: 03/11/17 04:09 03/11/17 04:09 <Sulaiman Danielle - Last Filed: 03/11/17 07:16> - Objective Vital Signs & Weight: Weight Weight 83.915 kg I&O: 03/10/17 03/11/17 03/12/17 06:59 06:59 06:59 Intake Total 2850 980 Balance 2850 980 Result Diagrams: 03/11/17 04:09 03/11/17 04:09 <Charlette Bal - Last Filed: 03/11/17 09:03> Phys Exam - Physical Examination HEENT: PERRLA, moist MMs Right neck swelling. Respiratory: no wheezing, clear to auscultation bilateral Cardiovascular: RRR, no significant murmur Gastrointestinal: soft, non-tender, no distention, positive bowel sounds Musculoskeletal: no edema, pulses present Neurological: non-focal, normal sensation, moves all 4 limbs Lymphatic: no nodes Psychiatric: normal affect, A&O x 3 Skin: no rash <Sulaiman Danielle - Last Filed: 03/11/17 07:16> Dx/Plan (1) Posterior cervical lymphadenopathy Code(s): R59.0 - LOCALIZED ENLARGED LYMPH NODES Status: Acute Plan: -EBV positive for prior infection, does not appear to be acute. -CMV negative -bartonella negative -flu negative -strep negative -Biopsy pending -Consider ID consult if path is negative -Leukocytosis resolved. Will monitor. -Continue abx until infection can be ruled out. -Awaiting biopsy results (2) Anemia Code(s): D64.9 - ANEMIA, UNSPECIFIED Status: Acute Qualifiers: Anemia type: unspecified type Qualified Code(s): D64.9 - Anemia, unspecified Plan: -possible incidental finding, however in the presence of elevated white count and throbocytopenia with the large lymphnodes, malignancy cannot be ruled out -iron studies are largely normal with the exception of a decreased TIBC. Pt does have a FHx of sickle cell anemia. -Will monitor (3) Neutrophilia Code(s): D72.9 - DISORDER OF WHITE BLOOD CELLS, UNSPECIFIED Status: Acute Plan: -Still present with improved overall leukocytosis and thrombocytopenia -Will continue antibiotics until infection ruled out. (4) Thrombocytopenia Code(s): D69.6 - THROMBOCYTOPENIA, UNSPECIFIED Status: Acute Plan: -resolved -see anemia (5) MAGNO (acute kidney injury) Code(s): N17.9 - ACUTE KIDNEY FAILURE, UNSPECIFIED Status: Resolved Plan: -resolved w/IVF -encourage PO fluids -Monitor fluid status (6) Hyponatremia Code(s): E87.1 - HYPO-OSMOLALITY AND HYPONATREMIA Status: Resolved Plan: -resolved w/IVF (7) Hypokalemia Code(s): E87.6 - HYPOKALEMIA Status: Acute Plan: -resolved -Will monitor going forward. - Plan Plan: Awaiting biopsy results and then discharge planning made from there. <Sulaiman Danielle - Last Filed: 03/11/17 07:16> Attending Addendum - Attending Addendum I personally evaluated the patient and discussed the management with Dr. Butcher. I agree with the History, Examination, Assessment and Plan documented above with any addition or exceptions noted below. The patient is still waiting on path results She continues to feel better. Anticipate discharge in next 1-2 days pending path. <Charlette Bal - Last Filed: 03/11/17 09:03>
[2017-03-11] MEDS: Vancomycin HCl 1.75 GM, Admixture Fee 1 EACH in Sodium Chloride 0.9% 500 ML IVPB SCH ×2 (09:36→21:50)
[2017-03-11] MEDS: Ibuprofen 800 MG TAB PO PRN (13:23)
[2017-03-12 04:51] LABS: #Eosinphils 0.7 thou/uL (0.0-0.7); #Lymphocytes 1.1 thou/uL (1.20-3.40); #Monocytes 0.4 thou/uL (0.11-0.59); #Neutrophils 8.8 thou/uL (1.40-6.50); %Basophils 0.3 % (0.0-1.0); %Eosinophils 6.7 % (0.0-10.0); %Lymphocytes 9.7 % (21.0-51.0); %Monocytes 3.9 % (0.0-10.0); Hematocrit 32.2 % (36.0-47.0); Mean Platelet Volume 7.6 fL (7.4-10.4); White Blood Cell (WBC) Count 11.1 thou/uL (4.8-10.8)
[2017-03-12 05:07] LABS: Anion Gap 12 mmol/L (10-20); BUN (Urea Nitrogen) 9 mg/dL (7.0-18.7); Calc. Creatinine Clearance 137 mL/min (70-130); Calcium 8.7 mg/dL (7.8-10.44); Carbon Dioxide 20 mmol/L (22-29); Chloride 108 mmol/L (98-107); Estimated GFR-MDRD Greater than 90
[2017-03-12 08:14] LABS: Vancomycin, Trough 24.2 ug/mL
--- NOTE | 2017-03-12 08:15 | PDOC.FM ---
- Subjective Subjective: Pt feels well today and has no specific complaints. She denies neck pain, which had been an ongoing problem prior. She denies fever, chills, n/v, peripheral neuro changes, and all other symptoms in ROS. There were no issues over night. - Objective Vital Signs & Weight: Vital Signs (12 hours) Temp Pulse Resp BP Pulse Ox 03/12/17 07:43 99.2 F 73 16 103/69 100 03/11/17 21:06 98.0 F 62 18 Weight Weight 83.915 kg I&O: 03/11/17 03/12/17 03/13/17 06:59 06:59 06:59 Intake Total 980 2250 Balance 980 2250 Result Diagrams: 03/12/17 04:10 03/12/17 04:10 Phys Exam - Physical Examination Constitutional: NAD HEENT: PERRLA, moist MMs, oral pharynx no lesions Neck: no JVD, supple, full ROM Nodes unchanged. Respiratory: clear to auscultation bilateral Cardiovascular: RRR, no significant murmur Gastrointestinal: soft, non-tender, no distention Musculoskeletal: no edema, pulses present Neurological: non-focal, normal sensation, moves all 4 limbs Lymphatic: no nodes Psychiatric: normal affect, A&O x 3 Skin: no rash Dx/Plan (1) Posterior cervical lymphadenopathy Code(s): R59.0 - LOCALIZED ENLARGED LYMPH NODES Status: Acute (2) Anemia Code(s): D64.9 - ANEMIA, UNSPECIFIED Status: Acute Qualifiers: Anemia type: unspecified type Qualified Code(s): D64.9 - Anemia, unspecified (3) Neutrophilia Code(s): D72.9 - DISORDER OF WHITE BLOOD CELLS, UNSPECIFIED Status: Acute (4) Thrombocytopenia Code(s): D69.6 - THROMBOCYTOPENIA, UNSPECIFIED Status: Acute (5) MAGNO (acute kidney injury) Code(s): N17.9 - ACUTE KIDNEY FAILURE, UNSPECIFIED Status: Resolved (6) Hyponatremia Code(s): E87.1 - HYPO-OSMOLALITY AND HYPONATREMIA Status: Resolved (7) Hypokalemia Code(s): E87.6 - HYPOKALEMIA Status: Acute - Plan Plan: 1. Posterior Lymphadenopathy -EBV positive for prior infection, does not appear to be acute. -CMV negative -bartonella negative -flu negative -strep negative -Biopsy pending -Consider ID consult if path is negative -CBC had improved over the weekend, but is bumped again this morning. Left shift remains. -Continue abx until infection can be ruled out. 2. Anemia -stable and asymptomatic -possible incidental finding, however in the presence of elevated white count and throbocytopenia with the large lymphnodes, malignancy cannot be ruled out -iron studies are largely normal with the exception of a decreased TIBC. 3. thrombocytopenia -resolved -see anemia 4. MAGNO -resolved w/IVF -encourage PO fluids 5. Hyponatremia -resolved w/IVF 6. Hypokalemia -resolved
[2017-03-12] MEDS: Vancomycin HCl 1.75 GM, Admixture Fee 1 EACH in Sodium Chloride 0.9% 500 ML IVPB SCH (09:15)
[2017-03-12] MEDS: VANCOMYCIN HCL IVPB SCH ×2 (09:43→21:43)
[2017-03-12] MEDS: SODIUM CHLORIDE IVPB SCH ×2 (09:43→21:43)
[2017-03-12] MEDS: ADMIXTURE FEE IVPB SCH ×2 (09:43→21:43)
--- NOTE | 2017-03-12 11:41 | ADD-PRG ---
DATE OF SERVICE: 03/12/2017 This is an addendum to the note of Dr. Kyaw Dhaliwal. Ms. Dudley is a pleasant 21-year-old black female patient who was admitted with a neck mass 1 week ag o. It is likely an infectious etiology, but we are awaiting results of biopsy. She is currently on levofloxacin and vancomycin. Her white count had been trending downward, but again went up overnig ht to 11,100. We will therefore consult with Dr. Mckinney given that the exact etiology of this \\\\"mas s/abscess\\\\" is not currently known. I have also suggested checking a hemoglobin electrophoresis to rule out the possibility of sickle thalassemia as this patient does have a family history of sickle trait.
--- NOTE | 2017-03-12 15:26 | CON ---
DATE OF CONSULTATION: 03/12/2017 REASON FOR CONSULTATION: Lymphadenopathy. HISTORY OF PRESENT ILLNESS: A 21-year-old who has a history of upper airway and skin allergies for many years, managed by ENT and buckler and lacer in [facility] and was in her usual state until 2 weeks before admission when she developed progressively worsening neck pain associated with 2 different areas of lymphadenopathy or lymphadenitis. Patient went to emergency room at [facility] with fever, chills, and myalgias and was given a diagnosis of influenza and then placed on Keflex at the same time. Additionally, she was given tramadol without improvement. The symptoms related to the lymphadenopathy worsened. A CT scan was done which showed lymph nodes in the posterior cervical region and on the right side and also 2 smaller lymph nodes on the left side. The patient was given broad spectrum coverage with aztreonam, vancomycin and Decadron and then she was admitted. Currently she is feeling better; according to her mother, markedly better. No headaches, visual symptoms , sore throat, odynophagia, dysphagia. No toothache, no back pain, no dyspnea, no cough, no sputum production, no abdominal pain or diarrhea, no genitourinary symptoms, no bleeding, no joint symptoms. PAST MEDICAL HISTORY: Includes allergies with upper airway as well as skin allergies which have been managed by the buckler and lacer as well as ENT in [facility]. The patient has had allergy injections since 2000. PAST SURGICAL HISTORY: Tonsillectomy. ALLERGIES: PENICILLIN with anaphylaxis. MEDICATION: Prior to admission, she was on Keflex and tramadol and currently she is receiving ibuprofen, levofloxacin, and vancomycin. FAMILY HISTORY: Fibroids in the mother. SOCIAL HISTORY: Never a smoker, no drug use. She works at [employer] and is not studying. States she has a fine exfoliation of the facial skin. Peripheral IV access. No Iglesias catheter. She has, I would say 2 cm lymph node tender in the right posterior cervical area. Anterior to it, there is the area of lymphadenectomy which was carried out during this admission. There is shotty left-sided posterior cervical lymph node as well. No other areas of lymphadenopathy are identified at this time. PHYSICAL EXAMINATION: VITAL SIGNS: T-max 101.9 on admission. She is defervesced since. Pulse 73, respirations 16, O2 sat 100%. Does not appear in distress. HEENT: Ocular movements are conjugate. Sclerae are white, conjunctivae normal. Pupils are equal. Nasal passages patent. Oral cavity; numerous teeth in place with very good shape. No other findings of note. NECK: Supple. LUNGS: With symmetric clear breath sounds. HEART: S1, S2, regular rate. No S3 or S4. ABDOMEN: Soft, not distended or tender. No ascites. No bladder distention. EXTREMITIES: No joint inflammatory activity. Pulses are 1+ in dorsalis pedis. Moves all extremities equally. Plantar responses are flexor. LABORATORY DATA AND IMAGING: Showed white cell count of 16, went down to 9, now it is 11, hemoglobin 10, MCV 82, platelets 229, 79% neutrophils. Sodium 136 , creatinine 0.86, AST was 43 and 63. ALT 63, now normalized. Albumin 2.8. Urinalysis with 4-6 WBCs, vancomycin. Vancomycin trough was 10.4 now it is 24.2. The Bartonella serology negative. CMV was negative. EBV serology was negative for IgM and antibodies positive for IgG consistent with old infection. [place] screen negative, HIV nonreactive. There is a flow cytometry which was not informative because of the sampling error. Group B strep isolated from urine clean catch. Blood cultures no growth and group A strep screen; actually culture has no growth from the oropharynx. Influenza A and B were negative. There is a fine needle aspirate that showed mixture of neutrophils, lymphocytes , and histiocytes. The surgical specimen from the lymphadenectomy is pending at this time. Chest x-ray with no acute process. A CT of neck with right neck soft tissue abscess of more likely area of lymphadenitis and lymphadenopathy, but no other problems. ASSESSMENT: 1. History of allergies both upper airway as well as skin, managed by allergies to an ENT doctor in the past. 2. New onset of acute lymphadenitis, which has been confirmed by needle aspirate associated with fever. DISCUSSION: Differential diagnosis includes upper respiratory infection, oral or dental infections. A number of viral infections have been already ruled out as well as Bartonella infection. Herpesvirus 6. Adenovirus can be also associated with such presentation. Chlamydial infection is usually more common in the genital area presenting with lymphadenopathy. Rickettsial fungal less likely. Mycobacterium infection with an atypical mycobacterium is a possibility , but usually presenting in more chronic fashion. Autoimmune syndromes including angioimmunoblastic lymphadenopathy, mixed connective tissue disease, systemic lupus, Sjogren's syndrome and other types of vasculitis is are possibilities. Malignancy less likely in view of the acuity of the presentation as well as the nature of the aspirate from the lymph node, hyperthyroidism has to be considered as well although this is usually lymphadenopathy in the submental submandibular region. Finally, Kikuchi's disease, or histiocytic necrotizing lymphadenitis is another possibility. We will check DAVID, C3, C4, and wait on the pathology of lymph node.. MTDD
[2017-03-13 05:31] LABS: #Eosinphils 1.1 thou/uL (0.0-0.7); #Lymphocytes 1.4 thou/uL (1.20-3.40); #Monocytes 0.5 thou/uL (0.11-0.59); #Neutrophils 7.8 thou/uL (1.40-6.50); %Basophils 0.4 % (0.0-1.0); %Eosinophils 9.9 % (0.0-10.0); %Lymphocytes 13.3 % (21.0-51.0); %Monocytes 4.5 % (0.0-10.0); Hematocrit 33.5 % (36.0-47.0); Mean Platelet Volume 7.8 fL (7.4-10.4); Red Blood Cell (RBC) Count 4.06 mill/uL (4.20-5.40); White Blood Cell (WBC) Count 10.9 thou/uL (4.8-10.8)
[2017-03-13 05:47] LABS: Anion Gap 12 mmol/L (10-20); BUN (Urea Nitrogen) 8 mg/dL (7.0-18.7); Calc. Creatinine Clearance 119 mL/min (70-130); Calcium 9.2 mg/dL (7.8-10.44); Carbon Dioxide 22 mmol/L (22-29); Chloride 107 mmol/L (98-107); Estimated GFR-MDRD 86
--- NOTE | 2017-03-13 08:10 | PDOC.FM ---
- Subjective Subjective: Pt feels well this morning and has no specific complaints. She denies all symptoms in ROS and neck pain has resolved. There were no acute events over night. - Objective Vital Signs & Weight: Vital Signs (12 hours) Temp 03/13/17 04:00 98.5 F 03/13/17 00:28 98.7 F Weight Weight 83.915 kg I&O: 03/12/17 03/13/17 03/14/17 06:59 06:59 06:59 Intake Total 2250 2770 Balance 2250 2770 Result Diagrams: 03/13/17 04:34 03/13/17 04:34 Phys Exam - Physical Examination Constitutional: NAD HEENT: PERRLA, moist MMs Neck: full ROM Nodes unchanged Respiratory: clear to auscultation bilateral Cardiovascular: RRR, no significant murmur Gastrointestinal: soft, non-tender, no distention, positive bowel sounds Musculoskeletal: no edema Neurological: non-focal No nodes other than noted on posterior cervical chain b/l Psychiatric: normal affect, A&O x 3 Skin: no rash Dx/Plan (1) Posterior cervical lymphadenopathy Code(s): R59.0 - LOCALIZED ENLARGED LYMPH NODES Status: Acute (2) Anemia Code(s): D64.9 - ANEMIA, UNSPECIFIED Status: Acute Qualifiers: Anemia type: unspecified type Qualified Code(s): D64.9 - Anemia, unspecified (3) Neutrophilia Code(s): D72.9 - DISORDER OF WHITE BLOOD CELLS, UNSPECIFIED Status: Acute (4) Thrombocytopenia Code(s): D69.6 - THROMBOCYTOPENIA, UNSPECIFIED Status: Acute (5) MAGNO (acute kidney injury) Code(s): N17.9 - ACUTE KIDNEY FAILURE, UNSPECIFIED Status: Resolved (6) Hyponatremia Code(s): E87.1 - HYPO-OSMOLALITY AND HYPONATREMIA Status: Resolved (7) Hypokalemia Code(s): E87.6 - HYPOKALEMIA Status: Acute - Plan Plan: 1. Posterior Lymphadenopathy -Dr Mckinney has been consulted. He is working to rule out autoimmune etiology. At this point it appears that he is leaning toward a viral etiology -EBV positive for prior infection, does not appear to be acute. -CMV negative -bartonella negative -flu negative -strep negative -Biopsy appears to be reactive and not malignant -WBC remains slightly elevated, but stable -Continue abx until bacterial infection can be ruled out. Likely dc today 2. Anemia -stable and asymptomatic -iron studies are largely normal with the exception of a decreased TIBC. -Hb electrophoresis is pending as pt has FHx of sickle cell 3. thrombocytopenia -resolved 4. MAGNO -resolved w/IVF -encourage PO fluids 5. Hyponatremia -resolved w/IVF 6. Hypokalemia -resolved
[2017-03-13] MEDS: VANCOMYCIN HCL IVPB SCH (09:09)
[2017-03-13] MEDS: SODIUM CHLORIDE IVPB SCH (09:09)
[2017-03-13] MEDS: ADMIXTURE FEE IVPB SCH (09:09)
--- NOTE | 2017-03-13 11:42 | ADD-PRG ---
This is an addendum to the note of Dr. Kyaw Dhaliwal. Ms. Dudley feels fine this morning. Dr. Mckinney has recommended that we stop her antibiotics and monit or. Evidently, she had a secondary bacterial infection related to possibly precipitating viral infe ction causing lymphadenopathy and lymphadenitis. In the event, she is clinically much better and wi ll be discharged today.
[2017-03-13 19:20] VITALS: BP 122/73; TEMP 99.3
[2017-03-13] MEDS ORDERED: Clindamycin 150 MG CAP PO SCH (22:00)
--- NOTE | 2017-03-14 06:17 | DIS-2 ---
DATE OF ADMISSION: 03/05/2017 DATE OF DISCHARGE: 03/13/2017 RESIDENT: Kyaw Dhaliwal DO ADMITTING ATTENDING: Charlette Bal MD DISCHARGE ATTENDING: Tacos Otero MD CONSULT: Jessee Mckinney MD, Infectious Diseases. 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 SECONDARY DIAGNOSES: Anemia, neutrophilia, thrombocytopenia and acute kidney injury. DISCHARGE MEDICATIONS: Clindamycin 300 t.i.d. x10 days. DISCONTINUED MEDICATIONS: None. HOSPITAL COURSE: The patient was admitted due to neck pain secondary to posterior neck mass. A large ~2.5cm mass was noted on her right posterior cervical chain. Initial thoughts on admission were lymphoma versus infectious etiology. Pt initially had an elevated white count, anemia, and thrombocytopenia. Workup was extensive, looking for infectious cause of the large 2.5 cm lymph node to include a negative syphilis, Bartonella, CMV, EBV, HIV and staph culture. CT showed multiple large lymph nodes in both right and left posterior lymph chains. A FNA and core biopsy were ordered from the major node. After the initial FNA, patient was unable to tolerate core biopsy and the procedure was ended. It was determined that the FNA provided and inadequate tissue sample. The following day, it was reattempted under conscious sedation successfully. Biopsy results ruled out malignant nature of the lymph node and showed necrosis and likely inflammatory process. At this point, Dr. Mckinney was consulted and he looked to rule out autoimmune causes. While holding that it was likely was secondary to a viral etiology, possibly associated with acute Kikuchi disease. Patient was on broad-spectrum antibiotics for the duration of her hospitalization due to the elevated white count with left shift. This did respond over time slowly, and at the time of discharge, it was mildly elevated. It was determined that the patient could be discharged on p.o. antibiotics with a close followup with her PCP and Dr. Mckinney. DISPOSITION: Stable. DISCHARGE INSTRUCTIONS: 1. Location: Home. 2. Diet: Regular. 3. Activity: Ad elizabeth. 4. Followup: Within 1 week with Jessee Mckinney MD and within 1 week with a new established PCP. [facility]
[2017-03-14 15:22] LABS: Anti-Striation AB Negative (Neg:<1:40); Antiparietal Cell Ab 5.1 Units (0.0-20.0); Complement C4 34 mg/dL (14-44); Mitochondrial (M2) ABS 11.1 Units (0.0-20.0); SCL-70 IgG AutoAb <0.2 AI (0.0-0.9); Smith IgG AutoAb <0.2 AI (0.0-0.9); Smooth Muscle AB 16 Units (0-19); Thyroid Peroxidase Abs 28 IU/mL (0-34); U1 RNP/SNRNP IgG AutoAb <0.2 AI (0.0-0.9)
[2017-03-15 09:17] LABS: Hemoglobin A 97.7 % (94.0-98.0); Hemoglobin A2 2.3 % (0.7-3.1); Hemoglobin F 0 % (0.0-2.0); Interpretation Note: (.)
== END 2017-03-13 18:39 | disposition home or self-care (01) | DRG 803 ==
LOC: ERS 03:01 → T4-A 12:44
PROVIDERS: ADMIT Family Medicine; ATTEND Family Medicine
PROC: 07D13ZX Extraction of Right Neck Lymphatic, Percutaneous Approach, Diagnostic (ICD-10-PCS; 2017-03-06)
PROC: 07B13ZX Excision of Right Neck Lymphatic, Percutaneous Approach, Diagnostic (ICD-10-PCS; principal; 2017-03-08)
DX: I88.9 Nonspecific lymphadenitis, unspecified (principal); N17.9 Acute kidney failure, unspecified; D69.6 Thrombocytopenia, unspecified; E87.1 Hypo-osmolality and hyponatremia; D64.9 Anemia, unspecified; E87.6 Hypokalemia; D72.9 Disorder of white blood cells, unspecified
CPT/HCPCS: 36415; 38505; 70491; 71010; 76705; 80048; 80053; 80202; 81003; 81015; 82550; 82728; 83021; 83520; 83540; 83550; 83605; 83935; 84300; 84443; 84703; 85025; 85060; 86160; 86225; 86235; 86308; 86376; 86431; 86480; 86611; 86644; 86645; 86663; 86664; 86665; 86780; 87040; 87077; 87081; 87086; 87389; 87430; 88173; 88184; 88305; 88312; 88333; 88341; 88342; 96361; 96365; 96375; 96376; 99156; 99157; A4216; J1100; J1885; J1956; J2250; J3010; J3370; J3490; J7050